=== PATIENT | female | born 1990 | race Hispanic/Latino ===

== ENCOUNTER 2020-05-03 06:19 | Emergency (ER) | payer OTHER ==
[~2020-05-03] VITALS: Ht 157.5 cm; Wt 52.2 kg
--- OUTSIDE RECORDS SUMMARY | 2020-05-03 08:22 | XMS ---
PreManage Notification: RM HORN [employer] Events No recent Security Events currently on file CRITERIA MET - 6 ED Visits in 6 Months - [facility] - 3 Facilities in 90 Days CARE PROVIDERS There are no care providers on record at this time. Luigi has no Care Guidelines for this patient. EJemal VISIT COUNT (12 MO.) [address] [facility] [address] [facility] 6 [facility] 2 [facility] [address] TOTAL 14 NOTE: Visits indicate total known visits. ED/C VISIT TRACKING (12 MO.) 05/03/2020 06:[address] [facility] TYPE: Emergency COMPLAINT: - SORE THROAT,CHILLS,SOB 04/02/2020 06:04 [facility] TYPE: Emergency DIAGNOSES: 0. SORE THROAT FROM ET TUBE 03/30/2020 14:14 [facility] TYPE: Emergency DIAGNOSES: 0. WEAKNESS GALLBLADDER ISSUES 03/29/2020 04:49 [facility] TYPE: Emergency DIAGNOSES: - Multiple Medical - Multiple Medical Problems - Anxiety disorder, unspecified 03/28/2020 23:57 [facility] TYPE: Emergency DIAGNOSES: 0. SORE THROAT ACID REFLUX 03/16/2020 23:24 [facility] Pedro Luis G[facility] Emergency TYPE: Emergency DIAGNOSES: 0. ABDOMINAL PAIN 02/28/2020 19:05 [facility] TYPE: Emergency DIAGNOSES: 0. SHORTNESS OF BREATH ANXIETY COUGH 02/26/2020 19:33 [facility] [place] TYPE: Emergency DIAGNOSES: - Gastro-esophageal reflux disease without esophagitis - HYPERTENSION ANXIETY - Panic disorder [episodic paroxysmal anxiety] - Acute stress reaction 02/24/2020 21:12 [facility] [place] TYPE: Emergency DIAGNOSES: 0. SOB, DRY COUGH, GERD 02/17/2020 00:39 [facility] Doming[facility] [place] TYPE: Emergency DIAGNOSES: 0. COUGH 02/12/2020 00:28 [facility] [place] TYPE: Emergency DIAGNOSES: - Myalgia, unspecified site - Generalized Body Aches - Other malaise - Cough - Body Aches; Chills 12/22/2019 09:17 [facility] [place] TYPE: Emergency DIAGNOSES: - Flank Pain - Other microscopic hematuria - Unspecified abdominal pain 11/18/2019 21:04 [facility] [place] TYPE: Emergency DIAGNOSES: 0. ABDOMINAL PAIN 09/13/2019 09:16 [facility] [place] TYPE: Emergency DIAGNOSES: - Dizziness - Near Syncope - Dizziness and giddiness - Nausea INPATIENT VISIT TRACKING (12 MO.) No inpatient visits to display in this time frame [email or web address]
== END 2020-05-03 07:41 | disposition home or self-care (01) ==
LOC: ED 06:19
DX: B34.9 Viral infection, unspecified (principal)
CPT/HCPCS: 99283; U0002